=== PATIENT | female | born 1995 | race Two or more races ===

== ENCOUNTER 2024-12-06 12:35 | Emergency (ER) | payer OTHER ==
[~2024-12-06] VITALS: Ht 160 cm; Wt 63.5 kg
[2024-12-06 13:50] LABS: URINE APPEARANCE Clear; URINE BILIRRUBIN Negative (NEGATIVE); URINE BLOOD Trace; URINE COLOR Yellow; URINE GLUCOSE Negative (NEGATIVE); URINE KETONE Negative (NEGATIVE); URINE LEUKOCYTE Moderate; URINE NITRATE Negative; URINE PROTEIN Negative (NEGATIVE); URINE UROBILINOGEN 0.2 E.U./dl
[2024-12-06 13:51] LABS: URINE BACTERIA 47.7 uL (0.0-1933); URINE RBC 4.4 uL (0.0-20.8); URINE WBC 283.5 uL (0.0-23.2)
[2024-12-06] MEDS ORDERED: CEFTRIAXONE SODIUM 1,000 MG VIAL IM STA (16:41)
[2024-12-06] MEDS ORDERED: CEFTRIAXONE SODIUM 1,000 MG VIAL ONE (16:58)
[2024-12-06 17:03] LABS: HEMATOCRIT 36.7 % (36.0-45.00); HEMOGLOBIN 12.9 g/dL (12.0-15.00); MEAN CELL VOLUME 90.5 fL (80.00-100.00); MEAN CORPUSCULAR HEMOGLOBIN 31.7 pg (27.00-32.0); PLATELET COUNT 192 K/uL (150-450); RED BLOOD COUNT 4.06 M/uL (4.00-6.00); RED CELL DISTRIBUTION WIDTH 12.6 % (11.5-14.5)
[2024-12-06 17:33] LABS: CALCIUM 8.9 mg/dL (8.5-10.1); CREATININE SERUM 0.7 mg/dL (0.55-1.02); GFR 98.93; POTASSIUM 3.33 mEq/L (3.5-5.1)
== END 2024-12-06 17:29 | disposition home or self-care (01) ==
LOC: ER 12:37
PROVIDERS: Emergency Medicine; General Practice
DX: N39.0 Urinary tract infection, site not specified (principal)